=== PATIENT | female | born 1940 ===

== ENCOUNTER 2021-08-26 08:56 | Outpatient (CLI) | payer MEDICARE, BC, SELFPAY ==
--- NOTE | ~2021-08-26 | MR_ITS ---
EXAMINATION: MR knee RT wo con DATE: 08/26/2021 10:32 INDICATION: Acute right knee pain. TECHNIQUE: Magnetic resonance imaging (MRI) of the right knee was performed without intravenous contr ast. Sequences included axial axial PD-weighted FS FSE, coronal PD-weighted FSE and PD-weighted FS FS E, sagittal PD-weighted FSE and T2-weighted FS FSE coronal STIR FSE, axial STIR FSE, and axial, coron al, and sagittal T1-weighted FSE. COMPARISON: None. 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 Artifact from the arthroplasty obscures the majority of the knee. There is a moderate-sized knee joint effusion. IMPRESSION: 1. Total right knee arthroplasty. Artifact from the arthroplasty obscures the majority of the knee. 2. Moderate-sized knee joint effusion. Reviewed, dictated and finalized at location A. IMPRESSION: 1. Total right knee arthroplasty. Artifact from the arthroplasty obscures the m ajority of the knee. 2. Moderate-sized knee joint effusion.
== END 2021-08-26 08:57 | disposition home or self-care (01) ==
LOC: ANHIMG 09:03
PROVIDERS: PCP Family Medicine; Visit Provider Family Medicine
DX: M25.461 Effusion, right knee (principal)
CPT/HCPCS: 73721